=== PATIENT | female | born 1960 | race Caucasian/White ===

== ENCOUNTER → 2018-01-14 | Outpatient (CLI) | payer BC ==
--- NOTE | 2018-01-14 17:02 | XR ---
Abdomen HISTORY: Ureter stone, follow-up No comparisons available Single frontal view of the abdomen There is a levoscoliosis. Bone mineralization is reduced. Vascular calcifications, injection granulom a are noted. No evident bowel obstruction or pneumoperitoneum. Lung bases are not included on the exa m. Detail may be obscured by overlying bowel gas. IMPRESSION: Nonobstructive bowel gas pattern. Calcifications within the pelvis felt likely to be vasc ular. Correlate with previous exam.
== END | disposition home or self-care (01) ==
LOC: RADXRYALE 15:40
PROVIDERS: ATTEND Urology
DX: R93.41 Abnormal radiologic findings on diagnostic imaging of renal pelvis, ureter, or bladder (principal); N20.1 Calculus of ureter
CPT/HCPCS: 74018